=== PATIENT | male | born 1955 | race African-American/Black ===

== ENCOUNTER 2024-04-29 18:29 | Emergency (ER) | payer OTHER ==
[2024-04-29 19:35] LABS: #Basophils Less than 0.03 10x3/uL (0.0-0.2); %Basophils 0.2 % (0.0-1.0); %Eosinophils 0.4 % (0.0-10.0); %Lymphocytes 4.7 % (21.0-51.0); %Monocytes 7.3 % (0.0-10.0); %Neutrophils 87.1 % (42.0-75.0); Hematocrit 47.1 % (42.0-52.0); Hemoglobin 14.9 g/dL (14.0-18.0); Mean Corpuscular HGB CONC 31.6 g/dL (32.0-36.0); Mean Corpuscular Volume 88.5 fL (78.0-98.0); Mean Platelet Volume 8.9 fL (7.4-10.4); Platelet Count 149 10x3/uL (130-400); RBC Distribution Width 14.2 % (11.5-14.5); Red Blood Cell (RBC) Count 5.32 mill/uL (4.70-6.10)
[2024-04-29 19:40] LABS: ALT (SGPT) 11 U/L (8-55); AST (SGOT) 25 U/L (5-34); Albumin 3.8 g/dL (3.4-4.8); Alkaline Phosphatase 72 U/L (40-110); Bilirubin, Direct 0.2 mg/dL (0.1-0.3); Bilirubin, Total 0.5 mg/dL (0.2-1.2); Lipase 23 U/L (8-78); Protein, Total 8.4 g/dL (5.8-8.1)
[2024-04-29 19:51] LABS: INR-International Normal Ratio 1.4; Prothrombin Time 16.8 sec (12.0-14.7)
[2024-04-29 19:54] LABS: Anion Gap 15 mmol/L (10-20); BUN (Urea Nitrogen) 24 mg/dL (8.4-25.7); Calc. Creatinine Clearance 0 mL/min (70-130); Calcium 8.3 mg/dL (7.8-10.44); Carbon Dioxide 22 mmol/L (23-31); Chloride 107 mmol/L (98-107); Estimated GFR 67; Glucose 105 mg/dL (80-115); Potassium 5.7 mmol/L (3.5-5.1); Sodium 138 mmol/L (136-145)
== END 2024-04-29 21:18 ==
LOC: ERS 18:29 → EEVIPCON 18:29 → ERS 21:18
DX: R11.2 Nausea with vomiting, unspecified (principal); K83.8 Other specified diseases of biliary tract; I13.10 Hypertensive heart and chronic kidney disease without heart failure, with stage 1 through stage 4 chronic kidney disease, or unspecified chronic kidney disease; E11.22 Type 2 diabetes mellitus with diabetic chronic kidney disease; N18.9 Chronic kidney disease, unspecified; I25.10 Atherosclerotic heart disease of native coronary artery without angina pectoris; I48.91 Unspecified atrial fibrillation; E05.90 Thyrotoxicosis, unspecified without thyrotoxic crisis or storm; Z55.6 Problems related to health literacy
CPT/HCPCS: 76705; 83690; 85610; 86850; 86900; 86901

== ENCOUNTER 2025-02-10 07:25 | Inpatient (IN) | payer OTHER ==
[2025-02-10] MEDS ORDERED: dilTIAZem 25 MG/5 ML VIAL ONE (07:39)
[2025-02-10 07:51] LABS: #Basophils 0.03 10x3/uL (0.0-0.2); #Eosinophils 0.07 10x3/uL (0.0-0.7); #Monocytes 0.71 10x3/uL (0.11-0.59); #Neutrophils 4.28 10x3/uL (1.40-6.50); %Basophils 0.4 % (0.0-1.0); %Eosinophils 1.0 % (0.0-10.0); %Lymphocytes 23.8 % (21.0-51.0); %Monocytes 10.6 % (0.0-10.0); %Neutrophils 64.1 % (42.0-75.0); Hematocrit 49.5 % (42.0-52.0); Hemoglobin 15.1 g/dL (14.0-18.0); Mean Corpuscular Hemoglobin 27.7 pg (27.0-31.0); Mean Corpuscular Volume 90.7 fL (78.0-98.0); Platelet Count 156 10x3/uL (130-400); Red Blood Cell (RBC) Count 5.46 mill/uL (4.70-6.10); White Blood Cell (WBC) Count 6.69 10x3/uL (4.8-10.8)
[2025-02-10 08:02] LABS: ALT (SGPT) Less than 7 U/L (Less than 45); AST (SGOT) 21 U/L (11-34); Albumin 3.7 g/dL (3.1-4.5); Alkaline Phosphatase 74 U/L (40-110); Anion Gap 16 mmol/L (10-20); BUN (Urea Nitrogen) 21 mg/dL (8.4-25.7); Bilirubin, Total 0.4 mg/dL (0.3-1.2); Calc. Creatinine Clearance 0 mL/min (70-130); Calcium 9.1 mg/dL (7.8-10.44); Carbon Dioxide 21 mmol/L (23-31); Chloride 103 mmol/L (98-107); Globulin 4.1 g/dL (2.4-3.5); Glucose 138 mg/dL (80-115); Potassium 4.3 mmol/L (3.5-5.1); Sodium 136 mmol/L (136-145)
[2025-02-10 08:08] LABS: INR-International Normal Ratio 1.2; PTT 29.2 sec (22.9-36.1); Prothrombin Time 15.4 sec (12.0-14.7)
[2025-02-10] MEDS ORDERED: Dextrose 50% Abboject 50 ML SYRINGE SLOW IVP PRN (13:33)
[2025-02-10] MEDS ORDERED: Melatonin 3 MG TAB PO PRN (13:33)
[2025-02-10] MEDS ORDERED: Senokot S 8.6-50 MG TAB PO PRN (13:33)
[2025-02-10] MEDS ORDERED: Calcium Carbonate 500 MG ChewTAB PO PRN (13:33)
[2025-02-10] MEDS ORDERED: Glucagon 1 MG/ML KIT IM PRN (13:33)
[2025-02-10] MEDS ORDERED: Ondansetron PF 4 MG/2 ML Vial IVP PRN (13:33)
[2025-02-10] MEDS ORDERED: Electrolyte Replacement Protocol 1 EACH FS PRN (13:45)
[2025-02-10 14:05] LABS: Magnesium 2.0 mg/dL (1.6-2.6)
[2025-02-10 15:30] VITALS: BMI 22.7
[2025-02-10] MEDS: Magnesium 2 GM/50 ML(in water) 2 GM in Premix 1 BAG IVPB SCH (21:12)
[2025-02-10] MEDS: risperiDONE 1 MG TAB PO SCH (21:12)
[2025-02-11 05:07] LABS: #Basophils Less than 0.03 10x3/uL (0.0-0.2); #Eosinophils 0.09 10x3/uL (0.0-0.7); #Monocytes 0.82 10x3/uL (0.11-0.59); #Neutrophils 3.13 10x3/uL (1.40-6.50); %Basophils 0.3 % (0.0-1.0); %Eosinophils 1.5 % (0.0-10.0); %Lymphocytes 33.2 % (21.0-51.0); %Monocytes 13.5 % (0.0-10.0); %Neutrophils 51.3 % (42.0-75.0); Hematocrit 47.0 % (42.0-52.0); Hemoglobin 14.4 g/dL (14.0-18.0); Mean Corpuscular Hemoglobin 27.1 pg (27.0-31.0); Mean Corpuscular Volume 88.3 fL (78.0-98.0); Platelet Count 161 10x3/uL (130-400); Red Blood Cell (RBC) Count 5.32 mill/uL (4.70-6.10); White Blood Cell (WBC) Count 6.09 10x3/uL (4.8-10.8)
[2025-02-11 05:18] LABS: Anion Gap 11 mmol/L (10-20); BUN (Urea Nitrogen) 13 mg/dL (8.4-25.7); Calc. Creatinine Clearance 69 mL/min (70-130); Calcium 8.9 mg/dL (7.8-10.44); Carbon Dioxide 26 mmol/L (23-31); Chloride 103 mmol/L (98-107); Glucose 105 mg/dL (80-115); Potassium 4.1 mmol/L (3.5-5.1); Sodium 136 mmol/L (136-145)
[2025-02-11] MEDS: Pantoprazole 40 MG DR.TAB PO SCH (09:07)
[2025-02-11] MEDS: Metoprolol Succinate XL 25 MG ER.TAB PO SCH (09:08)
[2025-02-11] MEDS: Acetaminophen 325 MG TAB PO PRN (09:08)
[2025-02-11] MEDS: Divalproex Sodium 250 MG DR.TAB PO SCH (09:08)
[2025-02-11] MEDS: Amiodarone In Dextrose 150 MG in Premix 1 BAG IVPB SCH (14:48)
[2025-02-11] MEDS: Hyaluronidase, Human Recomb. 150 UNITS/ML VIAL SC SCH (20:23)
[2025-02-12 05:52] LABS: ALT (SGPT) 10 U/L (Less than 45); AST (SGOT) 45 U/L (11-34); Albumin 3.4 g/dL (3.1-4.5); Alkaline Phosphatase 69 U/L (40-110); Anion Gap 13 mmol/L (10-20); BUN (Urea Nitrogen) 13 mg/dL (8.4-25.7); Bilirubin, Total 0.6 mg/dL (0.3-1.2); Calc. Creatinine Clearance 69 mL/min (70-130); Calcium 8.9 mg/dL (7.8-10.44); Carbon Dioxide 24 mmol/L (23-31); Chloride 100 mmol/L (98-107); Globulin 3.7 g/dL (2.4-3.5); Glucose 103 mg/dL (80-115); Potassium 4.1 mmol/L (3.5-5.1); Sodium 133 mmol/L (136-145)
[2025-02-12] MEDS: PNEUMOC 20-VAL CONJ-DIP CRM/PF 0.5 ML SYRINGE IM ONE (08:34)
[2025-02-12] MEDS: Spironolactone 25 MG TAB PO SCH (09:44)
[2025-02-12] MEDS: Amiodarone 200 MG TAB PO SCH (20:40)
[2025-02-13 04:50] LABS: ALT (SGPT) 10 U/L (Less than 45); AST (SGOT) 36 U/L (11-34); Albumin 3.4 g/dL (3.1-4.5); Alkaline Phosphatase 75 U/L (40-110); Anion Gap 13 mmol/L (10-20); BUN (Urea Nitrogen) 15 mg/dL (8.4-25.7); Bilirubin, Total 0.5 mg/dL (0.3-1.2); Calc. Creatinine Clearance 71 mL/min (70-130); Calcium 9.1 mg/dL (7.8-10.44); Carbon Dioxide 24 mmol/L (23-31); Chloride 101 mmol/L (98-107); Globulin 3.8 g/dL (2.4-3.5); Glucose 99 mg/dL (80-115); Potassium 4.2 mmol/L (3.5-5.1); Sodium 134 mmol/L (136-145)
[2025-02-13 11:32] VITALS: TEMP 97.9
[2025-02-13 15:54] VITALS: BP 139/74
[2025-02-22] MEDS ORDERED: Amiodarone 200 MG TAB PO SCH (09:00)
== END 2025-02-13 15:57 | DRG 281 ==
LOC: ERS 07:25 → 2NO 12:33
PROVIDERS: ADMIT Internal Medicine; ATTEND Internal Medicine
DX: I48.19 Other persistent atrial fibrillation (principal); I13.0 Hypertensive heart and chronic kidney disease with heart failure and stage 1 through stage 4 chronic kidney disease, or unspecified chronic kidney disease; I21.A1 Myocardial infarction type 2; I50.22 Chronic systolic (congestive) heart failure; I47.19 Other supraventricular tachycardia; I25.10 Atherosclerotic heart disease of native coronary artery without angina pectoris; M85.89 Other specified disorders of bone density and structure, multiple sites; I42.8 Other cardiomyopathies; E04.8 Other specified nontoxic goiter; E11.22 Type 2 diabetes mellitus with diabetic chronic kidney disease; E11.51 Type 2 diabetes mellitus with diabetic peripheral angiopathy without gangrene; A53.0 Latent syphilis, unspecified as early or late; R07.9 Chest pain, unspecified; F20.9 Schizophrenia, unspecified; D63.1 Anemia in chronic kidney disease; N18.2 Chronic kidney disease, stage 2 (mild); M19.90 Unspecified osteoarthritis, unspecified site; Z95.810 Presence of automatic (implantable) cardiac defibrillator; Z79.899 Other long term (current) drug therapy; Z79.84 Long term (current) use of oral hypoglycemic drugs; Z79.01 Long term (current) use of anticoagulants; Z98.890 Other specified postprocedural states
CPT/HCPCS: 36415; 36416; 71045; 80048; 80053; 83735; 83880; 84443; 84484; 85025; 85610; 85730; 93005; 93306; 93923; 94760; 96374; 96375; J0282; J0283; J3473; J3475; J7070

== ENCOUNTER 2025-04-16 10:51 | Emergency (ER) | payer OTHER ==
[2025-04-16] MEDS ORDERED: Magnesium 2 GM/50 ML BAG (IN WATER) ONE (11:27)
[2025-04-16] MEDS ORDERED: Cefepime 2 GM VIAL ONE (11:27)
[2025-04-16] MEDS ORDERED: Vancomycin 1.25 GM / NS 250 ML VIAL-2-BAG IVPB SCH (11:30)
[2025-04-16 12:19] LABS: #Basophils 0.03 10x3/uL (0.0-0.2); #Eosinophils 0.17 10x3/uL (0.0-0.7); #Monocytes 0.90 10x3/uL (0.11-0.59); #Neutrophils 3.61 10x3/uL (1.40-6.50); %Basophils 0.5 % (0.0-1.0); %Eosinophils 2.7 % (0.0-10.0); %Lymphocytes 24.7 % (21.0-51.0); %Monocytes 14.4 % (0.0-10.0); %Neutrophils 57.5 % (42.0-75.0); Hematocrit 47.3 % (42.0-52.0); Hemoglobin 15.2 g/dL (14.0-18.0); Mean Corpuscular Hemoglobin 28.2 pg (27.0-31.0); Mean Corpuscular Volume 87.8 fL (78.0-98.0); Platelet Count 196 10x3/uL (130-400); Red Blood Cell (RBC) Count 5.39 mill/uL (4.70-6.10); White Blood Cell (WBC) Count 6.27 10x3/uL (4.8-10.8)
[2025-04-16 12:32] LABS: INR-International Normal Ratio 1.2; PTT 28.0 sec (22.9-36.1); Prothrombin Time 15.0 sec (12.0-14.7)
[2025-04-16 12:45] LABS: Bacteria/HPF None Seen HPF (None Seen); CAUTI Indications for Culture Acute Hematuria; Glucose, Urine (Dipstick) 200 mg/dL (Negative); Leukocyte Negative Leu/uL (Negative); Protein, Urine (Dipstick) Negative (Neg-Trace); RBC/HPF 0-3 HPF (0-3); Specific Gravity, Urine 1.012 (1.002-1.036); WBC/HPF 0-3 HPF (0-3)
[2025-04-16 12:46] LABS: Urine Culture Reflex No No
[2025-04-16 13:20] LABS: CRP, High Sensitivity at Bryan 0.12 mg/dL (< or = 0.5)
[2025-04-16 13:21] LABS: ALT (SGPT) Less than 7 U/L (Less than 45); AST (SGOT) 20 U/L (11-34); Albumin 3.4 g/dL (3.1-4.5); Alkaline Phosphatase 64 U/L (40-110); Anion Gap 10 mmol/L (10-20); BUN (Urea Nitrogen) 11 mg/dL (8.4-25.7); Bilirubin, Total 0.3 mg/dL (0.3-1.2); Calc. Creatinine Clearance 0 mL/min (70-130); Calcium 8.3 mg/dL (7.8-10.44); Carbon Dioxide 25 mmol/L (23-31); Chloride 102 mmol/L (98-107); Globulin 3.5 g/dL (2.4-3.5); Glucose 275 mg/dL (80-115); Magnesium 2.6 mg/dL (1.6-2.6); Potassium 4.2 mmol/L (3.5-5.1); Sodium 133 mmol/L (136-145)
== END 2025-04-16 14:53 | disposition short-term general hospital (02) ==
LOC: ERS 10:51 → EEVIPCON 10:51 → ERS 14:53
DX: A41.9 Sepsis, unspecified organism (principal); I47.20 Ventricular tachycardia, unspecified; I13.0 Hypertensive heart and chronic kidney disease with heart failure and stage 1 through stage 4 chronic kidney disease, or unspecified chronic kidney disease; I50.9 Heart failure, unspecified; N18.9 Chronic kidney disease, unspecified; I25.10 Atherosclerotic heart disease of native coronary artery without angina pectoris; I48.91 Unspecified atrial fibrillation; E11.22 Type 2 diabetes mellitus with diabetic chronic kidney disease; Z86.718 Personal history of other venous thrombosis and embolism; Z79.01 Long term (current) use of anticoagulants; Z79.84 Long term (current) use of oral hypoglycemic drugs; Z79.899 Other long term (current) drug therapy
CPT/HCPCS: 36416; 71045; 81001; 83605; 83735; 83880; 84443; 84484; 85025; 85610; 85730; 86141; 87040; 87086; 93005; 94760; 96365; 96366; 96368; 96375; 99292; J0282; J0692; J1815; J3373; J3475; J7050